=== PATIENT | female | born 1960 | race African-American/Black ===

== ENCOUNTER 2016-05-21 11:02 | Emergency (ER) | payer BC, MEDICARE | END 2016-05-21 11:39 | disposition home or self-care (01) | LOC: NAV ERS 11:02 | DX: F41.9 Anxiety disorder, unspecified (principal); J45.909 Unspecified asthma, uncomplicated; F31.9 Bipolar disorder, unspecified; F17.210 Nicotine dependence, cigarettes, uncomplicated | CPT/HCPCS: 99283 ==

== ENCOUNTER 2016-07-08 15:36 | Emergency (ER) | payer MEDICARE ==
[2016-07-08] MEDS ORDERED: Cyclobenzaprine 10 MG TAB ONE (16:03)
[2016-07-08] MEDS ORDERED: Ketorolac Tromethamine 30 MG/ML VIAL ONE (16:03)
[2016-07-08 16:06] LABS: Bilirubin Negative (Negative); Blood, Urine Small (Negative); Clarity Clear (Clear); Glucose, Urine (Dipstick) Negative (Negative); Leukocyte Negative (Negative); Nitrite Negative (Negative); Protein, Urine (Dipstick) Negative (Neg-Trace); Urobilinogen 0.2 mg/dL (0.2-1.0)
[2016-07-08 16:14] LABS: Bacteria/HPF 1+ HPF (None Seen); RBC/HPF 0-3 HPF (0-3); WBC/HPF 0-3 HPF (0-3)
== END 2016-07-08 16:31 | disposition home or self-care (01) ==
LOC: NAV ERS 15:36
DX: S39.012A Strain of muscle, fascia and tendon of lower back, initial encounter (principal); J45.909 Unspecified asthma, uncomplicated; F41.9 Anxiety disorder, unspecified; F31.9 Bipolar disorder, unspecified; F20.9 Schizophrenia, unspecified; F17.210 Nicotine dependence, cigarettes, uncomplicated; Z79.899 Other long term (current) drug therapy; X58.XXXA Exposure to other specified factors, initial encounter
CPT/HCPCS: 81003; 81015; 87086; 96372; J1885

== ENCOUNTER 2016-07-10 03:13 | Emergency (ER) | payer MEDICARE ==
[2016-07-10] MEDS ORDERED: Ondansetron ODT 4 MG TAB ONE (03:24)
[2016-07-10 03:41] LABS: Bilirubin Negative (Negative); Blood, Urine Small (Negative); Clarity Clear (Clear); Glucose, Urine (Dipstick) Negative (Negative); Leukocyte Negative (Negative); Nitrite Negative (Negative); Protein, Urine (Dipstick) 30 mg/dL (Neg-Trace); Specific Gravity, Urine 1.015 (1.005-1.030); Urobilinogen 0.2 mg/dL (0.2-1.0); pH, Urine 7.5 (5.0-9.0)
[2016-07-10 03:47] LABS: Bacteria/HPF 1+ HPF (None Seen); RBC/HPF 0-3 HPF (0-3); Squamous Epithelial 0-3 HPF (0-3); WBC/HPF 0-3 HPF (0-3)
[2016-07-10 03:48] LABS: Hyaline Casts/LPF 0-3 HYALINE CAST LPF (0-3 Hyaline)
[2016-07-10] MEDS ORDERED: Sodium Chloride 0.9% 1,000 ML ONE (03:58)
[2016-07-10] MEDS ORDERED: Ondansetron HCl/PF 4 MG/2 ML Vial ONE (04:15)
[2016-07-10] MEDS ORDERED: Ketorolac Tromethamine 30 MG/ML VIAL ONE (04:15)
[2016-07-10 04:34] LABS: ALT (SGPT) 9 U/L (8-55); AST (SGOT) 13 U/L (5-34); Albumin 3.8 g/dL (3.5-5.0); Alkaline Phosphatase 109 U/L (40-150); Anion Gap 17 mmol/L (10-20); BUN (Urea Nitrogen) 13 mg/dL (9.8-20.1); Band 5 % (5-11); Bilirubin, Total 0.2 mg/dL (0.2-1.2); Calc. Creatinine Clearance 0 mL/min (70-130); Calcium 9.4 mg/dL (7.8-10.44); Carbon Dioxide 23 mmol/L (22-29); Chloride 105 mmol/L (98-107); Eosinophils 10 % (0-10); Estimated GFR-MDRD 88; Globulin 3.8 g/dL (2.4-3.5); Glucose 105 mg/dL (70-105); Hemoglobin 14.2 g/dL (12.0-16.0); Lipase 45 U/L (8-78); Lymphocytes 16 % (21-51); MDiff Complete? YES; Macrocytosis SLIGHT = 6-15 cells (100X) (0-5/hpf); Mean Corpuscular HGB CONC 33.3 g/dL (32.0-36.0); Mean Corpuscular Hemoglobin 33.7 pg (27.0-31.0); Monocytes 18 % (0-10); Neutrophil 50 % (42-75); PLT Morphology Comment Appears Adequate; Platelet Count 234 thou/uL (130-400); Potassium 3.6 mmol/L (3.5-5.1); Protein, Total 7.6 g/dL (6.0-8.3); RBC Distribution Width 13.4 % (11.5-14.5); Reactive Lymphocytes 1 % (0-10); Red Blood Cell (RBC) Count 4.22 mill/uL (4.20-5.40); Sodium 141 mmol/L (136-145); White Blood Cell (WBC) Count 8.4 thou/uL (4.8-10.8)
[2016-07-10] MEDS ORDERED: Mag-Al Plus 1200 MG/1200 MG/120 MG/30 ML UDCUP ONE (04:52)
[2016-07-10] MEDS ORDERED: Lidocaine Viscous Sol 2% 15 ml UD Cup ONE (04:52)
[2016-07-10] MEDS ORDERED: Pantoprazole 40 MG VIAL ONE (04:53)
--- NOTE | 2016-07-10 11:32 | CT ---
PRELIMINARY REPORT/[facility]/EMERGENCY AFTER HOURS PROCEDURE: EXAM: CT Abdomen and Pelvis Without Intravenous Contrast CLINICAL HISTORY: 56 years old, female; Pain; Other: Rt flank pain; Prior surgery; Surgery date: 6+ months; Surgery ty pe: Partial hysterectomy; Patient HX: C/O back pain, rt flank pain, pt with 4 hours of n/v TECHNIQUE: Axial computed tomography images of the abdomen and pelvis without intravenous contrast. This CT exa m was performed using one or more of the following dose reduction techniques: automated exposure con trol, adjustment of the mA and/or kV according to patient size, and/or use of iterative reconstruction technique. Coronal and sagittal reformatted images were created and reviewed. EXAM DATE/TIME: Exam ordered 07/10/2016 4:15 AM COMPARISON: No relevant prior studies available. FINDINGS: Lower thorax: No acute findings. ABDOMEN: Liver: Unremarkable. Gallbladder and bile ducts: Unremarkable. No calcified stones. No ductal dilation. Pancreas: Unremarkable. No ductal dilation. Spleen: Unremarkable. No splenomegaly. Adrenals: Unremarkable. No mass. Kidneys and ureters: Nonobstructing stones in the kidneys bilaterally. Stomach and bowel: Unremarkable. No obstruction. No mucosal thickening. Appendix: Normal appendix. PELVIS: Bladder: Unremarkable. No stones. Reproductive: Unremarkable as visualized. ABDOMEN and PELVIS: Intraperitoneal space: Unremarkable. No free air. No significant fluid collection. Bones/joints: No acute fracture. No dislocation. Soft tissues: Unremarkable. Vasculature: Unremarkable. No abdominal aortic aneurysm. Lymph nodes: Unremarkable. No enlarged lymph nodes. IMPRESSION: No acute findings. Thank you for allowing us to participate in the care of your patient. Dictated and Authenticated by: Janak Reyes MD 07/10/2016 4:32 AM Central Time ([place] \T\ [place]) FINAL REPORT EMERGENCY AFTER HOURS STUDY CT ABDOMEN NONCONTRAST CT PELVIS NONCONTRAST: (urolithiasis protocol) DATE: 07-10-16 TIME: 4:17 a.m. HISTORY: 56-year-old female with acute right flank pain associated with nausea and emesis. COMPARISON: Noncontrast CT of 06-25-[address] of 06-30-15. TECHNIQUE: IV injection of iodinated contrast media: none Oral contrast media: none FINDINGS: Other than for urolithiasis, the lack of IV and oral contrast limits the evaluation. Dr. Julian Reyes of [facility] did not have the benefit of the previous studies for comparison. Whereas previously, the cecum was located first in the right lower quadrant in its normal position on , then deep in the posterior inferior pelvic cavity very close to the coccyx on 06-30-15; now the c ecum has moved to the midline upper/mid abdomen. This is associated with swirling of the mesentery a nd mild twisting of small bowel loops and blood vessels in the right lower quadrant and at midline. The appendix is normal. There is no definite mesenteric edema. No small bowel dilation. No free flui d in the abdominal cavity or pelvic cavity. Numerous small and tiny calcifications in the bilateral renal pyramids, as demonstrated on the 06-25-15 CT. No definite hydronephrosis visualized. No signs o f acute colonic diverticulitis. No pneumoperitoneum. Lung bases are grossly clear. No pleural effusi on or pneumoperitoneum. Disagreement with the preliminary report by [facility]. There are numerous tiny calcifications in small arteries in the retroperitoneum bilaterally, right g reater than left, with most of them close to the expected locations of the ureters. This makes it di fficult to rule out the possibility that there could be a nonobstructing or low grade partially obst ructing calculus in the right ureter, especially with lack of visceral fat. The lack of overt hydron ephrosis indicates that there is no high grade right ureteral obstruction. IMPRESSION: 1. Mobile cecum, with interval migration of the cecum to upper midline, associated with twisting of the mesentery and small intestine, but no evidence of bowel obstruction at this time (although the p otential exists). 2. Nephrolithiasis and possible nephrocalcinosis. 3. No compelling evidence for obstructive uropathy, although the extensive arterial calcifications i n vessels close to the right ureter makes it difficult to evaluate for right ureteral calculi. KATHERIN Good POS: [facility]
== END 2016-07-10 05:14 | disposition home or self-care (01) ==
LOC: NAV ERS 03:13
DX: R11.2 Nausea with vomiting, unspecified (principal); J45.909 Unspecified asthma, uncomplicated; F31.9 Bipolar disorder, unspecified; F41.9 Anxiety disorder, unspecified; F20.9 Schizophrenia, unspecified; Z79.899 Other long term (current) drug therapy
CPT/HCPCS: 74176; 80053; 81003; 81015; 83690; 85025; 96361; 96374; 96375; C9113; J1885; J2405; J7050; Q0162

== ENCOUNTER 2016-08-25 06:18 | Emergency (ER) | payer MEDICARE ==
[2016-08-25] MEDS ORDERED: Ondansetron HCl/PF 4 MG/2 ML Vial ONE ×2 (06:31→06:56)
[2016-08-25] MEDS ORDERED: Fentanyl 100 MCG/2 ML VIAL ONE (06:50)
[2016-08-25] MEDS ORDERED: Sodium Chloride 0.9% 100 ML ONE (06:51)
[2016-08-25] MEDS ORDERED: Famotidine/PF 20 mg/2ml Vial ONE (06:51)
[2016-08-25 06:52] LABS: #Basophils 0.1 thou/uL (0.0-0.2); #Eosinphils 0.2 thou/uL (0.0-0.7); #Lymphocytes 2.1 thou/uL (1.20-3.40); #Monocytes 0.5 thou/uL (0.11-0.59); #Neutrophils 5.1 thou/uL (1.40-6.50); %Basophils 1.1 % (0.0-1.0); %Eosinophils 2.2 % (0.0-10.0); %Lymphocytes 26.3 % (21.0-51.0); %Monocytes 6.5 % (0.0-10.0); %Neutrophils 63.4 % (42.0-75.0); Hemoglobin 15.3 g/dL (12.0-16.0); Mean Corpuscular HGB CONC 32.8 g/dL (32.0-36.0); Mean Corpuscular Hemoglobin 32.5 pg (27.0-31.0); Mean Corpuscular Volume 98.8 fl (81.0-99.0); Mean Platelet Volume 8.2 fL (7.4-10.4); Platelet Count 341 thou/uL (130-400); RBC Distribution Width 13.7 % (11.5-14.5); Red Blood Cell (RBC) Count 4.71 mill/uL (4.20-5.40)
[2016-08-25 07:05] LABS: ALT (SGPT) 9 U/L (8-55); AST (SGOT) 11 U/L (5-34); Albumin 4.2 g/dL (3.5-5.0); Alkaline Phosphatase 131 U/L (40-150); Anion Gap 18 mmol/L (10-20); BUN (Urea Nitrogen) 8 mg/dL (9.8-20.1); Bilirubin, Total 0.3 mg/dL (0.2-1.2); Calc. Creatinine Clearance 0 mL/min (70-130); Carbon Dioxide 21 mmol/L (22-29); Chloride 103 mmol/L (98-107); Estimated GFR-MDRD 83; Globulin 4.3 g/dL (2.4-3.5); Glucose 126 mg/dL (70-105); Lipase 17 U/L (8-78); Potassium 3.4 mmol/L (3.5-5.1); Protein, Total 8.5 g/dL (6.0-8.3); Sodium 139 mmol/L (136-145)
[2016-08-25 07:12] LABS: CKMB 0.6 ng/mL (0-6.6); Troponin I Less than 0.010 ng/mL (< 0.028)
[2016-08-25] MEDS ORDERED: Lidocaine Viscous Sol 2% 15 ml UD Cup ONE (07:15)
[2016-08-25] MEDS ORDERED: Mag-Al Plus 1200 MG/1200 MG/120 MG/30 ML UDCUP ONE (07:17)
== END 2016-08-25 09:26 | disposition home or self-care (01) ==
LOC: NAV ERS 06:18
DX: R11.2 Nausea with vomiting, unspecified (principal); R10.13 Epigastric pain; J45.909 Unspecified asthma, uncomplicated; F41.9 Anxiety disorder, unspecified; F31.9 Bipolar disorder, unspecified; Z79.899 Other long term (current) drug therapy
CPT/HCPCS: 80053; 82150; 82550; 82553; 83690; 84484; 85025; 93005; 96365; 96375; 96376; J2405; J3010; J3475; S0028

== ENCOUNTER 2016-12-04 07:09 | Emergency (ER) | payer MEDICARE ==
[2016-12-04] MEDS ORDERED: predniSONE 20 MG TAB ONE (07:27)
[2016-12-04] MEDS ORDERED: predniSONE 10 MG TAB ONE (07:27)
== END 2016-12-04 07:46 | disposition home or self-care (01) ==
LOC: NAV ERS 07:09
DX: J45.901 Unspecified asthma with (acute) exacerbation (principal); F41.9 Anxiety disorder, unspecified; F32.9 Major depressive disorder, single episode, unspecified; F20.9 Schizophrenia, unspecified; Z79.899 Other long term (current) drug therapy
CPT/HCPCS: 94640; J7506; J7512; J7620

== ENCOUNTER 2017-02-04 07:02 | Emergency (ER) | payer MEDICARE ==
[2017-02-04] MEDS ORDERED: Ibuprofen 800 MG TAB ONE (07:51)
== END 2017-02-04 07:54 | disposition home or self-care (01) ==
LOC: NAV ERS 07:02
DX: H00.014 Hordeolum externum left upper eyelid (principal); J45.909 Unspecified asthma, uncomplicated; F31.9 Bipolar disorder, unspecified; F41.9 Anxiety disorder, unspecified; F20.9 Schizophrenia, unspecified
CPT/HCPCS: 99283

== ENCOUNTER 2017-02-06 14:57 | Emergency (ER) | payer MEDICARE ==
[~2017-02-06 14:57] MED LIST: Iopamidol 370 76% 100 ML VIAL ONE
[2017-02-06] MEDS ORDERED: Acetaminophen 500 MG TAB ONE (15:25)
[2017-02-06 15:49] LABS: Bilirubin Negative (Negative); Blood, Urine Moderate (Negative); Clarity Clear (Clear); Glucose, Urine (Dipstick) Negative (Negative); Leukocyte Negative (Negative); Nitrite Negative (Negative); Protein, Urine (Dipstick) Negative (Neg-Trace); Urobilinogen 0.2 mg/dL (0.2-1.0)
[2017-02-06 15:50] LABS: Amphetamine Not Detected (NotDetected); Barbiturates Screen Not Detected (NotDetected); Benzodiazepine Screen Not Detected (NotDetected); Cocaine Metabolite Screen Not Detected (NotDetected); Medtox Control Line Valid? VALID (VALID); Methadone Not Detected (NotDetected); Methamphetamine Not Detected (NotDetected); Opiate Screen Not Detected (NotDetected); Oxycodone Screen Not Detected (NotDetected); Phencyclidine (PCP) Not Detected (NotDetected); THC/Cannabinoid Screen Not Detected (NotDetected); Tricyclic Screen Not Detected (NotDetected)
[2017-02-06] MEDS ORDERED: cefTRIAXone\\ROCEPHIN 1 GM VIAL ONE (15:51)
[2017-02-06] MEDS ORDERED: Sodium Chloride 0.9% 100 ML ONE (15:51)
[2017-02-06] MEDS ORDERED: Fentanyl 100 MCG/2 ML VIAL ONE ×3 (15:53→20:02)
[2017-02-06] MEDS ORDERED: Sodium Chloride 0.9% 1,000 ML ONE ×2 (15:53→18:08)
[2017-02-06 16:01] LABS: Bacteria/HPF 1+ HPF (None Seen); Squamous Epithelial 0-3 HPF (0-3); WBC/HPF 0-3 HPF (0-3)
[2017-02-06 16:07] LABS: ALT (SGPT) 11 U/L (8-55); AST (SGOT) 16 U/L (5-34); Albumin 4.1 g/dL (3.5-5.0); Alkaline Phosphatase 120 U/L (40-150); Anion Gap 18 mmol/L (10-20); BUN (Urea Nitrogen) 6 mg/dL (9.8-20.1); Bilirubin, Total 0.3 mg/dL (0.2-1.2); Calc. Creatinine Clearance 0 mL/min (70-130); Calcium 9.6 mg/dL (7.8-10.44); Carbon Dioxide 20 mmol/L (22-29); Chloride 102 mmol/L (98-107); Estimated GFR-MDRD 89; Globulin 4.2 g/dL (2.4-3.5); Glucose 94 mg/dL (70-105); Potassium 3.9 mmol/L (3.5-5.1); Protein, Total 8.3 g/dL (6.0-8.3); Sodium 136 mmol/L (136-145)
[2017-02-06 16:08] LABS: Acetaminophen Less than 6.0 mcg/mL (10.0-30.0); Alcohol Less than 10 mg/dL (Less than 10); Salicylate Less than 8.0 mg/dL (15.0-30.0)
[2017-02-06 16:18] LABS: Hemoglobin 14.3 g/dL (12.0-16.0); Mean Corpuscular HGB CONC 32.5 g/dL (32.0-36.0); Mean Platelet Volume 9.4 fL (7.4-10.4); Platelet Count 250 thou/uL (130-400); RBC Distribution Width 14.3 % (11.5-14.5); Red Blood Cell (RBC) Count 4.35 mill/uL (4.20-5.40); White Blood Cell (WBC) Count 10.9 thou/uL (4.8-10.8)
--- NOTE | 2017-02-06 16:19 | RAD ---
PA AND LATERAL CHEST: History: Cough, body aches. FINDINGS: Comparison made with exam of 06-03-13. The heart size is normal. The lungs are well expanded without focal areas of consolidation, pneumotho rax, or pleural effusions. No acute osseous abnormalities are seen. IMPRESSION: No radiographic evidence of acute cardiopulmonary process. POS: [facility]
[2017-02-06 16:47] LABS: Eosinophils 8 % (0-10); Lymphocytes 16 % (21-51); MDiff Complete? YES; Macrocytosis SLIGHT = 6-15 cells (100X) (0-5/hpf); Monocytes 13 % (0-10); Neutrophil 63 % (42-75); PLT Morphology Comment Appears Adequate
[2017-02-06] MEDS ORDERED: Ondansetron HCl/PF 4 MG/2 ML Vial ONE (17:44)
[2017-02-06] MEDS ORDERED: Sodium Chloride 0.9% 250 ML 250 ML ONE (19:04)
--- NOTE | 2017-02-06 21:14 | CT ---
ORBIT CT WITH CONTRAST: History: Eyelid and edema in the left upper lid. Comparison: None. Technique: Post contrast orbit CT is performed in the axial plane. Reformatted images are submitted f or interpretation. FINDINGS: There is appropriate enhancement of the visualized brain parenchyma. There is adequate aeration of the visualized paranasal sinuses and mastoid air cells. There are no fr actures with regards to the maxillofacial/orbital osseous structures. Coronal reformatted images demonstrate patent bilateral osteomeatal complexes. Midline nasal septum. Aruna bullosa of the left superior and middle turbinate is noted. The osseous margins of the orbits are intact. With regard to the right orbit, ocular lens is appropriately located. Retrobulbar fat is preserved. A ppropriate attenuation of the optic nerve and ocular rectus muscles. With regard to left orbit, ocular lens is appropriately located. Retrobulbar fat is preserved. Approp riate attenuation of the ocular rectus muscles and the optic nerve. There is soft tissue swelling inv olving the upper and lower lid. There is mild enhancement. There is a 7mm left palpebral fluid collec tion. Mild inflammation and enhancement extends into the left preseptal soft tissues. Minimal fluid i s also noted anterior to the left maxillary sinus. Minimal induration of the fat anterior left maxill sawyer sinus. IMPRESSION: Left facial cellulitis, predominately involving the periorbital region. There is a 7 mm palpebral abs cess. POS: [facility]
[2017-02-06 21:50] LABS: Lactic Acid 2.9 mmol/L (0.5-2.2)
== END 2017-02-06 21:46 | disposition short-term general hospital (02) ==
LOC: NAV ERS 14:57
DX: A41.9 Sepsis, unspecified organism (principal); H00.014 Hordeolum externum left upper eyelid; L03.213 Periorbital cellulitis; J45.909 Unspecified asthma, uncomplicated; F41.9 Anxiety disorder, unspecified; F31.9 Bipolar disorder, unspecified; F17.210 Nicotine dependence, cigarettes, uncomplicated; F20.9 Schizophrenia, unspecified
CPT/HCPCS: 70481; 71020; 80053; 80306; 80307; 81003; 81015; 83605; 85025; 87040; 93005; 94640; 94760; 96361; 96365; 96367; 96375; 96376; J0696; J2405; J3010; J3370; J7050; J7620

== ENCOUNTER 2017-03-10 23:24 | Emergency (ER) | payer MEDICARE ==
[2017-03-10] MEDS ORDERED: Ondansetron ODT 4 MG TAB ONE (23:41)
[2017-03-10] MEDS ORDERED: Lidocaine Viscous Sol 2% 15 ml UD Cup ONE (23:42)
[2017-03-10] MEDS ORDERED: Mag-Al Plus 1200 MG/1200 MG/120 MG/30 ML UDCUP ONE (23:42)
[2017-03-11] MEDS ORDERED: Sodium Chloride 0.9% 1,000 ML ONE (00:09)
[2017-03-11] MEDS ORDERED: Ondansetron HCl/PF 4 MG/2 ML Vial ONE (00:09)
[2017-03-11] MEDS ORDERED: Pantoprazole 40 MG VIAL ONE (00:24)
[2017-03-11] MEDS ORDERED: Fentanyl 100 MCG/2 ML VIAL ONE (00:24)
[2017-03-11 00:47] LABS: Band 4 % (5-11); Hemoglobin 13.6 g/dL (12.0-16.0); Lymphocytes 22 % (21-51); MDiff Complete? YES; Mean Corpuscular HGB CONC 32.7 g/dL (32.0-36.0); Mean Corpuscular Hemoglobin 32.7 pg (27.0-31.0); Mean Platelet Volume 10.3 fL (7.4-10.4); Monocytes 9 % (0-10); Neutrophil 65 % (42-75); PLT Morphology Comment Appears Adequate; Platelet Count 265 thou/uL (130-400); RBC Distribution Width 14.5 % (11.5-14.5); RBC Morphology Normal; Red Blood Cell (RBC) Count 4.15 mill/uL (4.20-5.40); White Blood Cell (WBC) Count 7.9 thou/uL (4.8-10.8)
[2017-03-11 00:50] LABS: CKMB 0.8 ng/mL (0-6.6); Troponin I Less than 0.010 ng/mL (< 0.028)
[2017-03-11 00:51] LABS: ALT (SGPT) 12 U/L (8-55); AST (SGOT) 19 U/L (5-34); Alkaline Phosphatase 114 U/L (40-150); Anion Gap 18 mmol/L (10-20); BUN (Urea Nitrogen) 10 mg/dL (9.8-20.1); Bilirubin, Total 0.3 mg/dL (0.2-1.2); CK (CPK) 83 U/L (29-168); Calc. Creatinine Clearance 0 mL/min (70-130); Calcium 9.8 mg/dL (7.8-10.44); Carbon Dioxide 23 mmol/L (22-29); Chloride 105 mmol/L (98-107); Estimated GFR-MDRD Greater than 90; Globulin 3.9 g/dL (2.4-3.5); Glucose 128 mg/dL (70-105); Lipase 30 U/L (8-78); Protein, Total 7.9 g/dL (6.0-8.3); Sodium 142 mmol/L (136-145)
== END 2017-03-11 01:49 | disposition home or self-care (01) ==
LOC: NAV ERS 23:24
DX: R10.13 Epigastric pain (principal); J45.909 Unspecified asthma, uncomplicated; F41.9 Anxiety disorder, unspecified; F31.9 Bipolar disorder, unspecified; F20.9 Schizophrenia, unspecified; F17.210 Nicotine dependence, cigarettes, uncomplicated
CPT/HCPCS: 36415; 80053; 82553; 83690; 84484; 85025; 93005; 96361; 96374; 96375; C9113; J2405; J3010; J7050; Q0162

== ENCOUNTER 2017-03-11 02:19 | Emergency (ER) | payer MEDICARE ==
[2017-03-11] MEDS ORDERED: Morphine 10 MG/ML VIAL ONE (02:25)
== END 2017-03-11 02:55 | disposition home or self-care (01) ==
LOC: NAV ERS 02:19
DX: R10.13 Epigastric pain (principal); J45.909 Unspecified asthma, uncomplicated; F41.9 Anxiety disorder, unspecified; F31.9 Bipolar disorder, unspecified; F20.9 Schizophrenia, unspecified; F17.210 Nicotine dependence, cigarettes, uncomplicated
CPT/HCPCS: 96372; J2270

== ENCOUNTER 2017-06-25 18:10 | Emergency (ER) | payer MEDICARE ==
[2017-06-25] MEDS ORDERED: Ondansetron ODT 4 MG TAB ONE (18:21)
[2017-06-25] MEDS ORDERED: Promethazine HCl 25 MG/ML VIAL ONE (18:34)
[2017-06-25] MEDS ORDERED: Mag-Al Plus 1200 MG/1200 MG/120 MG/30 ML UDCUP ONE ×2 (18:55→19:05)
[2017-06-25] MEDS ORDERED: Lidocaine Viscous Sol 2% 15 ml UD Cup ONE ×2 (18:55→19:05)
== END 2017-06-25 20:37 | disposition home or self-care (01) ==
LOC: NAV ERS 18:10
DX: R10.13 Epigastric pain (principal); J45.909 Unspecified asthma, uncomplicated; F41.9 Anxiety disorder, unspecified; F31.9 Bipolar disorder, unspecified; F20.9 Schizophrenia, unspecified; F17.210 Nicotine dependence, cigarettes, uncomplicated
CPT/HCPCS: 96372; 99406; J2550; Q0162

== ENCOUNTER 2018-08-01 11:41 | Emergency (ER) | payer OTHER, MEDICARE ==
[2018-08-01] MEDS ORDERED: Haloperidol Lactate 5 MG/ML VIAL ONE ×2 (12:06→16:12)
[2018-08-01 12:10] LABS: Bilirubin Small (Negative); Blood, Urine Moderate (Negative); Clarity Clear (Clear); Glucose, Urine (Dipstick) Negative (Negative); Leukocyte Small (Negative); Nitrite Negative (Negative); Protein, Urine (Dipstick) Trace mg/dL (Neg-Trace); Specific Gravity, Urine 1.025 (1.005-1.030); pH, Urine 5.5 (5.0-9.0)
[2018-08-01 12:22] LABS: Acetaminophen Less than 6.0 mcg/mL (10.0-30.0); Alcohol Less than 10 mg/dL (Less than 10); Salicylate Less than 8.0 mg/dL (15.0-30.0)
[2018-08-01 12:24] LABS: ALT (SGPT) 19 U/L (8-55); AST (SGOT) 26 U/L (5-34); Alkaline Phosphatase 83 U/L (40-150); Anion Gap 17 mmol/L (10-20); BUN (Urea Nitrogen) 11 mg/dL (9.8-20.1); Bilirubin, Total 0.5 mg/dL (0.2-1.2); CK (CPK) 245 U/L (29-168); Calc. Creatinine Clearance 0 mL/min (70-130); Calcium 9.9 mg/dL (7.8-10.44); Carbon Dioxide 23 mmol/L (22-29); Chloride 101 mmol/L (98-107); Estimated GFR-MDRD 89; Globulin 3.2 g/dL (2.4-3.5); Glucose 142 mg/dL (70-105); Protein, Total 7.2 g/dL (6.0-8.3); Sodium 138 mmol/L (136-145)
[2018-08-01 12:25] LABS: Amphetamine Not Detected (NotDetected); Barbiturates Screen Not Detected (NotDetected); Benzodiazepine Screen Not Detected (NotDetected); Cocaine Metabolite Screen Not Detected (NotDetected); Medtox Control Line Valid? VALID (VALID); Methadone Not Detected (NotDetected); Methamphetamine Not Detected (NotDetected); Opiate Screen Not Detected (NotDetected); Oxycodone Screen Not Detected (NotDetected); Phencyclidine (PCP) Not Detected (NotDetected); THC/Cannabinoid Screen Not Detected (NotDetected); Tricyclic Screen Not Detected (NotDetected)
[2018-08-01 12:32] LABS: #Basophils 0.1 thou/uL (0.0-0.2); #Eosinphils 0.1 thou/uL (0.0-0.7); %Basophils 1.4 % (0.0-1.0); %Eosinophils 1.1 % (0.0-10.0); %Lymphocytes 41.9 % (21.0-51.0); %Monocytes 13.5 % (0.0-10.0); %Neutrophils 42.1 % (42.0-75.0); Hemoglobin 13.4 g/dL (12.0-16.0); Mean Corpuscular HGB CONC 32.1 g/dL (32.0-36.0); Mean Corpuscular Hemoglobin 32.9 pg (27.0-31.0); Platelet Count 302 thou/uL (130-400); RBC Distribution Width 13.3 % (11.5-14.5); Red Blood Cell (RBC) Count 4.06 mill/uL (4.20-5.40); White Blood Cell (WBC) Count 7.1 thou/uL (4.8-10.8)
[2018-08-01 12:35] LABS: Bacteria/HPF 1+ HPF (None Seen); RBC/HPF 0-3 HPF (0-3)
[2018-08-01] MEDS ORDERED: diphenhydrAMINE 50 MG/ML VIAL ONE (16:24)
== END 2018-08-01 16:49 | disposition psychiatric hospital, planned readmission (93) ==
LOC: NAV ERS 11:41
DX: F20.9 Schizophrenia, unspecified (principal); E86.0 Dehydration; E87.6 Hypokalemia; F41.9 Anxiety disorder, unspecified; F31.9 Bipolar disorder, unspecified; F17.210 Nicotine dependence, cigarettes, uncomplicated
CPT/HCPCS: 80053; 80306; 80307; 81003; 81015; 82550; 83735; 84443; 85025; 87086; 96372; J1200; J1630

== ENCOUNTER 2019-09-07 05:44 | Emergency (ER) | payer MEDICARE ==
[2019-09-07] MEDS ORDERED: Lorazepam 2 MG/ML VIAL ONE (05:54)
[2019-09-07] MEDS ORDERED: diphenhydrAMINE 50 MG/ML VIAL ONE (05:54)
[2019-09-07] MEDS ORDERED: Ziprasidone 20 MG VIAL ONE (05:54)
[2019-09-07] MEDS ORDERED: Sterile Water 100 ML ONE (05:56)
[2019-09-07] MEDS ORDERED: Sterile Water 10 ML ONE (05:57)
[2019-09-07 06:27] LABS: Bilirubin Negative (Negative); Blood, Urine Small (Negative); Clarity Clear (Clear); Glucose, Urine (Dipstick) Negative (Negative); Ketone, Urine Negative (Negative); Leukocyte Negative (Negative); Nitrite Negative (Negative); Protein, Urine (Dipstick) Negative (Neg-Trace); Specific Gravity, Urine 1.025 (1.005-1.030); Urobilinogen 0.2 mg/dL (Less than 2); pH, Urine 5.5 (5.0-9.0)
[2019-09-07 06:31] LABS: #Basophils 0.1 thou/uL (0.0-0.2); #Eosinphils 0.2 thou/uL (0.0-0.7); #Lymphocytes 3.1 thou/uL (1.20-3.40); #Monocytes 0.9 thou/uL (0.11-0.59); #Neutrophils 2.6 thou/uL (1.40-6.50); %Basophils 1.2 % (0.0-1.0); %Eosinophils 3.3 % (0.0-10.0); %Lymphocytes 44.9 % (21.0-51.0); %Monocytes 13.2 % (0.0-10.0); %Neutrophils 37.3 % (42.0-75.0); Hemoglobin 12.5 g/dL (12.0-16.0); Hypochromia SLIGHT = 6-15 cells (100X) (0-5/hpf); MDiff Complete? YES; Macrocytosis SLIGHT = 6-15 cells (100X) (0-5/hpf); Mean Corpuscular HGB CONC 30.8 g/dL (32.0-36.0); Mean Corpuscular Hemoglobin 32.9 pg (27.0-31.0); Mean Platelet Volume 9.3 fL (7.4-10.4); Platelet Count 300 thou/uL (130-400); Platelet Morphology Comment Appears Adequate; RBC Distribution Width 14.5 % (11.5-14.5); Red Blood Cell (RBC) Count 3.81 mill/uL (4.20-5.40); White Blood Cell (WBC) Count 6.9 thou/uL (4.8-10.8)
[2019-09-07 06:34] LABS: Bacteria/HPF None Seen HPF (None Seen); WBC/HPF None Seen HPF (0-3)
[2019-09-07 06:35] LABS: Amphetamine Not Detected (NotDetected); Barbiturates Screen Not Detected (NotDetected); Benzodiazepine Screen Not Detected (NotDetected); Cocaine Metabolite Screen Not Detected (NotDetected); Medtox Control Line Valid? VALID (VALID); Methadone Not Detected (NotDetected); Methamphetamine Not Detected (NotDetected); Opiate Screen Not Detected (NotDetected); Oxycodone Screen Not Detected (NotDetected); Phencyclidine (PCP) Not Detected (NotDetected); THC/Cannabinoid Screen Not Detected (NotDetected); Tricyclic Screen Not Detected (NotDetected)
[2019-09-07 06:46] LABS: ALT (SGPT) 13 U/L (8-55); AST (SGOT) 17 U/L (5-34); Acetaminophen Less than 6.0 mcg/mL (10.0-30.0); Albumin 3.9 g/dL (3.5-5.0); Alcohol Less than 10 mg/dL (Less than 10); Alkaline Phosphatase 87 U/L (40-110); Anion Gap 16 mmol/L (10-20); BUN (Urea Nitrogen) 11 mg/dL (9.8-20.1); Bilirubin, Total 0.2 mg/dL (0.2-1.2); Calc. Creatinine Clearance 0 mL/min (70-130); Calcium 8.9 mg/dL (7.8-10.44); Carbon Dioxide 21 mmol/L (22-29); Chloride 105 mmol/L (98-107); Estimated GFR-MDRD Greater than 90; Globulin 3.7 g/dL (2.4-3.5); Glucose 86 mg/dL (70-105); Potassium 4.1 mmol/L (3.5-5.1); Protein, Total 7.6 g/dL (6.0-8.3); Salicylate Less than 8.0 mg/dL (15.0-30.0); Sodium 138 mmol/L (136-145)
== END 2019-09-07 12:08 | disposition psychiatric hospital, planned readmission (93) ==
LOC: NAV ERS 05:44
DX: F23 Brief psychotic disorder (principal); D75.89 Other specified diseases of blood and blood-forming organs; Z91.14 Patient's other noncompliance with medication regimen; F17.210 Nicotine dependence, cigarettes, uncomplicated; Z79.899 Other long term (current) drug therapy
CPT/HCPCS: 36415; 80053; 80306; 80307; 81003; 81015; 82550; 84443; 85025; 93005; J1200; J2060; J3486

== ENCOUNTER 2023-07-22 12:49 | Emergency (ER) | payer MEDICARE | END 2023-07-22 12:50 | LOC: NAV ERS 12:49 | DX: Z53.21 Procedure and treatment not carried out due to patient leaving prior to being seen by health care provider (principal) ==